=== PATIENT | female | born 1935 | race Caucasian/White ===

== ENCOUNTER 2021-01-22 16:54 | Inpatient (IN) | payer OTHER ==
[~2021-01-22] VITALS: Ht 170.2 cm; Wt 64.4 kg
[2021-01-22 18:26] LABS: HEMOGLOBIN 9.5 gm/dl (12.3-15.3); RED BLOOD COUNT 3.53 M/UL (4.00-5.10); WHITE BLOOD COUNT 6.2 K/UL (4.5-11.0)
[2021-01-23] MEDS ORDERED: ELIQUIS5 MG PO (10:29)
[2021-01-23] MEDS ORDERED: LEVOTHYROXINE100 MCG PO (10:30)
[2021-01-23] MEDS ORDERED: HYDROCHLOROTH12.5 MG PO (10:30)
[2021-01-23] MEDS ORDERED: LISINOPRIL5 MG PO (10:30)
[2021-01-24 04:26] LABS: BUN/CREATININE RATIO 17 (0-10)
[2021-01-24 04:28] LABS: HEMOGLOBIN 8.4 gm/dl (12.3-15.3); WHITE BLOOD COUNT 5.5 K/UL (4.5-11.0)
[2021-01-24 04:33] LABS: RED BLOOD COUNT 3.09 M/UL (4.00-5.10)
[2021-01-24] MEDS ORDERED: HYDROCODON-ACE1 EAC4 PO (18:41)
[2021-01-24 19:01] LABS: HEMOGLOBIN 8.3 gm/dl (12.3-15.3)
[2021-01-25 04:50] LABS: RED BLOOD COUNT 2.27 M/UL (4.00-5.10); WHITE BLOOD COUNT 9.3 K/UL (4.5-11.0)
[2021-01-25 04:52] LABS: HEMOGLOBIN 6.1 gm/dl (12.3-15.3)
[2021-01-25 05:14] LABS: BUN/CREATININE RATIO 19 (0-10)
[2021-01-26 02:38] LABS: HEMOGLOBIN 7.7 gm/dl (12.3-15.3); WHITE BLOOD COUNT 8.1 K/UL (4.5-11.0)
[2021-01-26 02:43] LABS: RED BLOOD COUNT 2.73 M/UL (4.00-5.10)
[2021-01-26 03:02] LABS: BUN/CREATININE RATIO 24 (0-10)
[2021-01-27 04:15] LABS: HEMOGLOBIN 8.9 gm/dl (12.3-15.3)
[2021-01-27 04:20] LABS: RED BLOOD COUNT 3.19 M/UL (4.00-5.10); WHITE BLOOD COUNT 14.6 K/UL (4.5-11.0)
[2021-01-27 04:32] LABS: BUN/CREATININE RATIO 19 (0-10)
[2021-01-27] MEDS ORDERED: STIMULANT LAXA1 EACH PO (10:51)
[2021-01-28 03:14] LABS: HEMOGLOBIN 8.4 gm/dl (12.3-15.3); RED BLOOD COUNT 3.03 M/UL (4.00-5.10); WHITE BLOOD COUNT 12.3 K/UL (4.5-11.0)
[2021-01-28 03:38] LABS: BUN/CREATININE RATIO 21 (0-10)
[2021-01-28] MEDS ORDERED: LASIX TAB 20 MG20 MG PO ×2 (09:27→09:28)
== END 2021-01-28 15:09 | disposition home or self-care (01) | DRG 522 ==
LOC: ER1 16:54 → PROG CARE 20:17 → CDU 20:17 → M/S 20:17 → PROG CARE 01-24 21:46 → M/S 01-27 21:29
PROVIDERS: Emergency Medicine; Internal Medicine; Nurse Anesthetist, Certified Registered; Orthopaedic Surgery; ADMIT Internal Medicine
PROC: 30233N1 Transfusion of Nonautologous Red Blood Cells into Peripheral Vein, Percutaneous Approach (ICD-10-PCS; 2021-01-24)
PROC: 0SR90JA Replacement of Right Hip Joint with Synthetic Substitute, Uncemented, Open Approach (ICD-10-PCS; principal; 2021-01-24 16:45)
DX: S72.091A Other fracture of head and neck of right femur, initial encounter for closed fracture (principal); E87.1 Hypo-osmolality and hyponatremia; D62 Acute posthemorrhagic anemia; I10 Essential (primary) hypertension; E03.9 Hypothyroidism, unspecified; Z20.822 Contact with and (suspected) exposure to COVID-19; I48.0 Paroxysmal atrial fibrillation; I49.5 Sick sinus syndrome; M16.11 Unilateral primary osteoarthritis, right hip; I27.20 Pulmonary hypertension, unspecified; Z96.642 Presence of left artificial hip joint; Z82.49 Family history of ischemic heart disease and other diseases of the circulatory system; Z79.01 Long term (current) use of anticoagulants
CPT/HCPCS: ECHO; 36415; 36430; 71045; 73502; 76000; 80048; 80053; 81001; 82436; 82550; 82553; 82607; 82746; 83540; 83550; 83735; 83880; 83935; 84133; 84300; 84439; 84443; 84484; 85014; 85018; 85025; 86850; 86900; 86901; 86920; 93005; 93306; 97116-GP-CQ; 97161; 97166; 97530-GP-CQ; 97535; 99284; C1776; J0171; J0690; J2001; J2405; J2704; J3010; J3370; J7050; J7120; P9016; U0002